=== PATIENT | female | born 1960 | race Caucasian/White ===

== ENCOUNTER 2018-04-29 18:03 | Emergency (ER) | payer OTHER ==
[~2018-04-29] VITALS: Ht 175.3 cm; Wt 72.0 kg
[~2018-04-29 18:03] MED LIST: ALIGN4 MG PO; ALTACE5 MG PO; AMOXICILLIN875 MG PO; ASACOL HD800 MG PO; AUGMENTIN500 MG PO; CRESTOR20 MG PO; DELZICOL400 MG PO; DESYREL100 MG PO; DITROPAN XL10 MG; ESCITALOPRAM OX20 MG PO; ESTROVEN NIGHT1 EAC1 PO; HYDROCHLOROTHIA25 MG PO; LEVAQUIN750 MG PO; LEVOFLOXACIN750 MG PO; LEXAPRO20 MG PO; LIBRIUM25 MG PO; METFORMIN HCL500 MG PO; MOTRIN800 MG PO; OXYBUTYNIN CHLOR5 MG PO; PANTOPRAZOLE SO40 MG PO; RAMIPRIL2.5 MG PO; RAMIPRIL5 MG PO; ROPINIROLE HCL0.5 MG PO; TRAZODONE HCL50 MG PO; TYLENOL EXTRA500 MG PO; VESICARE5 MG PO; VYTORIN 10/21 TABLET PO
[2018-04-29 18:48] LABS: HEMATOCRIT 44.3 % (36.0-46.0); HEMOGLOBIN 16.3 G/DL (11.9-15.5); MCH 37.7 PG (29.0-34.0); MCHC 36.8 G/DL (30.0-36.0); MCV 102.5 FL (83-99); PLATELET COUNT 198 K/uL (156-360); RBC DIS.WIDTH-CV 12.9 % (11.8-14.6); RBC DIS.WIDTH-SD 49.1 % (39-53); RED BLOOD COUNT 4.32 M/uL (3.80-5.20); WHITE BLOOD COUNT 10.1 K/uL (4.1-10.2)
[2018-04-29 19:24] LABS: PTT 28.6 SEC (25-37)
[2018-04-29 22:36] VITALS: BP 169/87
[2018-04-30 00:11] LABS: CHLORIDE 98 MEQ/L (99-109); CREATININE 0.5 MG/DL (0.6-1.3); GFR ESTIMATE (CALCULATED) > 59 mL/min/; GLUCOSE 68 mg/dL (70-99); POTASSIUM 3.2 MEQ/L (3.7-5.4); SERUM ETHYL ALCOHOL 143 mg/dL; SODIUM 137 MEQ/L (136-147); UREA NITROGEN (BUN) 6 mg/dL (9-23)
== END 2018-04-29 22:21 | disposition home or self-care (01) ==
LOC: EME 18:03 → EXP 18:03
PROVIDERS: Physician Assistant
DX: R04.0 Epistaxis (principal); F32.9 Major depressive disorder, single episode, unspecified; J43.9 Emphysema, unspecified; E78.5 Hyperlipidemia, unspecified; K21.9 Gastro-esophageal reflux disease without esophagitis; F17.200 Nicotine dependence, unspecified, uncomplicated; F41.9 Anxiety disorder, unspecified; Z79.84 Long term (current) use of oral hypoglycemic drugs; Z88.5 Allergy status to narcotic agent
CPT/HCPCS: 80048; 85027; 85610; 85730; 99281; 99283; G0480

== ENCOUNTER 2018-06-03 18:12 | Emergency (ER) | payer OTHER ==
[~2018-06-03] VITALS: Ht 175.3 cm; Wt 72.7 kg
[2018-06-03 19:09] LABS: APPEARANCE CLEAR ((CLEAR)); BILIRUBIN NEGATIVE; BLOOD SMALL; COLOR COLORLESS ((YELLOW)); GLUCOSE (STRIP) NEGATIVE; KETONES NEGATIVE; LEUKOCYTES NEGATIVE; NITRITE NEGATIVE; PROTEIN (STRIP) NEGATIVE; SPECIFIC GRAVITY 1.002 (1.000-1.030); UROBILINOGEN 0.2 MG/DL (0.2-1.0)
[2018-06-03 19:23] LABS: HEMATOCRIT 44.7 % (36.0-46.0); HEMOGLOBIN 16.1 G/DL (11.9-15.5); MCH 37.4 PG (29.0-34.0); PLATELET COUNT 236 K/uL (156-360); RBC DIS.WIDTH-CV 13.6 % (11.8-14.6); RBC DIS.WIDTH-SD 52.8 % (39-53); WHITE BLOOD COUNT 10.9 K/uL (4.1-10.2)
[2018-06-03 19:32] LABS: BACTERIA RARE /HPF; EPITHELIAL CELLS RARE /HPF; MUCUS NONE SEEN /LPF; RED BLOOD CELLS 0-5 /HPF (0-5); UCUL ADDED? NO; WHITE BLOOD CELLS NONE SEEN /HPF (0-5)
[2018-06-03 19:34] LABS: ALBUMIN 4.7 g/dL (3.2-4.8); CHLORIDE 97 mEq/L (99-109); POTASSIUM 3.8 mEq/L (3.7-5.4); SODIUM 136 mEq/L (136-147)
[2018-06-03 19:37] LABS: GLUCOSE 109 mg/dL (70-99); TOTAL PROTEIN 7.6 g/dL (6.4-8.3)
[2018-06-03 19:39] LABS: TOTAL BILIRUBIN 0.7 mg/dL (0.0-1.0)
[2018-06-03 19:40] LABS: ALKALINE PHOSPHATASE 85 IU/L (3-129); CREATININE 0.7 mg/dL (0.6-1.3); GFR ESTIMATE (CALCULATED) > 59 mL/min/
[2018-06-03 19:41] LABS: UREA NITROGEN (BUN) 6 mg/dL (9-23)
[2018-06-03 19:42] LABS: AST (GOT) 20 IU/L (2-34)
[2018-06-03 19:43] LABS: ALT (GPT) 32 IU/L (3-49)
[2018-06-03 19:44] LABS: LIPASE 36 U/L (1.0-51.0)
[2018-06-03] MEDS ORDERED: NORCO 5/3251 TABLET PO (21:19)
[2018-06-03] MEDS ORDERED: AUGMENTIN875 MG PO (21:19)
[2018-06-03 21:46] VITALS: BP 106/69
== END 2018-06-03 21:46 | disposition home or self-care (01) ==
LOC: EME 18:12
PROVIDERS: Physician Assistant
DX: K57.32 Diverticulitis of large intestine without perforation or abscess without bleeding (principal); F10.10 Alcohol abuse, uncomplicated; R11.2 Nausea with vomiting, unspecified; R19.7 Diarrhea, unspecified; R33.9 Retention of urine, unspecified; M47.896 Other spondylosis, lumbar region; M51.36 Other intervertebral disc degeneration, lumbar region; M43.17 Spondylolisthesis, lumbosacral region; E78.5 Hyperlipidemia, unspecified; Z79.84 Long term (current) use of oral hypoglycemic drugs; F17.200 Nicotine dependence, unspecified, uncomplicated
CPT/HCPCS: 74177; 80053; 81003; 83690; 85027; 99281; 99285; J1885; J2405; J7030